=== PATIENT | male | born 1960 | race Caucasian/White ===

== ENCOUNTER 2021-07-03 07:39 | Inpatient (IN) ==
[2021-07-03] MEDS ORDERED: Nitroglycerin 0.4 MG TAB.SUBL SL ONE (07:44)
[2021-07-03] MEDS ORDERED: 0.9 % Sodium Chloride 1,000 ML ONE ×2 (07:50→07:54)
[2021-07-03] MEDS ORDERED: Heparin 1,000 UNITS/500 mL 500 ML ONE (07:50)
[2021-07-03] MEDS ORDERED: *HR* Heparin 10,000 UNIT/10 ML VIAL ONE ×2 (07:50→07:51)
[2021-07-03] MEDS ORDERED: ISOVUE-370 200 ML INFUS..BTL ONE ×2 (07:50→08:30)
[2021-07-03] MEDS ORDERED: Nitroglycerin 1,000 MCG/5 ML VIAL IV ONE (07:50)
[2021-07-03] MEDS ORDERED: *HR* Heparin 5,000 UNIT/ML VIAL IVP PRN ×2 (07:51)
[2021-07-03] MEDS ORDERED: *HR* Heparin 5,000 UNIT/ML VIAL IVP ONE (07:51)
[2021-07-03] MEDS ORDERED: *HR* Ticagrelor 90 MG TABLET PO ONE (07:51)
[2021-07-03] MEDS ORDERED: Nitroglycerin 0.4 MG TAB.SUBL SL PRN (07:51)
[2021-07-03] MEDS ORDERED: *HR* FentaNYL (PF) 100 MCG/2 ML VIAL ONE (07:53)
[2021-07-03] MEDS ORDERED: *HR* Midazolam HCl 2 MG/2 ML VIAL ONE (07:53)
[2021-07-03] MEDS ORDERED: Heparin 25,000UNIT/250ML 1/2NS 25,000 UNIT/250 ML IV.SOLN IVC SCH (08:00)
[2021-07-03 08:19] LABS: Basophils % 0.5 %; Eosinophils # 0.2 K/mcL (0.0-0.6); Eosinophils % 1.9 %; Hematocrit 45.1 % (37.5-50.1); Immature Granulocytes % 0.2 % (0-4); Lymphocytes # 2.5 K/mcL (0.6-4.6); Lymphocytes % 31.3 %; Mean Corpuscular HGB Conc 33.3 g/dL (31.6-35.5); Mean Corpuscular Hemoglobin 30.2 pg (28.0-33.3); Mean Corpuscular Volume 90.7 fL (83.0-100.0); Mean Platelet Volume 9.8 fL (9.4-12.4); Monocytes # 0.4 K/mcL (0.0-1.3); Monocytes % 4.9 %; Neutrophils # 4.9 K/mcL (1.6-8.9); Platelet Count 312 K/mcL (140-400); Red Blood Count 4.97 M/mcL (4.19-5.50); Red Cell Distribution Width 12.9 % (11.5-14.5); Segmented Neutrophils % 61.2 %
[2021-07-03] MEDS ORDERED: Tirofiban 12.5 MG/250ML 12.5 MG/250 ML BAG ONE (08:25)
[2021-07-03 08:28] LABS: Prothrombin Time 10.9 Seconds (9.4-12.1)
[2021-07-03 08:30] LABS: Activated Partial Thrombo Time 29.8 Seconds (26.0-36.0)
[2021-07-03] MEDS ORDERED: Perflutren Lipid Microsphere 1.3 ML in 0.9 % Sodium Chloride 8.7 ML IVP PRN (09:05)
[2021-07-03] MEDS ORDERED: Naloxone 0.4 MG/ML INJ IVP PRN (09:05)
[2021-07-03] MEDS ORDERED: Acetaminophen 325 MG TABLET PO PRN (09:08)
[2021-07-03 10:13] LABS: BUN/Creatinine Ratio 20 (6-26); Blood Urea Nitrogen 20 mg/dL (8-23); Calcium 9.1 mg/dL (8.6-10.3); Carbon Dioxide 24 mEq/L (23-29); Chloride 104 mEq/L (98-107); Glucose 179 mg/dL (70-105); Magnesium 1.8 mg/dL (1.6-2.6); Osmolality,Calculated 295 (280-300); Sodium 139 mEq/L (136-145); Troponin I 0.03 ng/mL (< 0.04); eGFR For African Americans > 60 (> 60); eGFR For Non-African Americans > 60 (> 60)
[2021-07-03 13:50] LABS: Estimated Average Glucose 134 mg/dl; Hemoglobin A1C 6.3 %
[2021-07-03] MEDS: Metoprolol XL (24 HR) Succ 50 MG TAB.ER.24H PO SCH (18:59)
[2021-07-03] MEDS: Sacubitril/Valsartan 24/26 MG 1 TABLET PO SCH (20:38)
[2021-07-03] MEDS: *HR* Ticagrelor 90 MG TABLET PO SCH (20:39)
[2021-07-04 06:48] LABS: BUN/Creatinine Ratio 15 (6-26); Blood Urea Nitrogen 14 mg/dL (8-23); Calcium 9.1 mg/dL (8.6-10.3); Carbon Dioxide 26 mEq/L (23-29); Chloride 102 mEq/L (98-107); Chol/HDL Ratio 5.7 (0-4.9); Cholesterol 211 mg/dL (< 200); Glucose 136 mg/dL (70-105); HDL Cholesterol 37 mg/dL (40-59); LDL Cholesterol,Calculated 136 mg/dL (< 100); Osmolality,Calculated 287 (280-300); Sodium 137 mEq/L (136-145); Triglycerides 191 mg/dL (< 150); eGFR For African Americans > 60 (> 60); eGFR For Non-African Americans > 60 (> 60)
[2021-07-04 07:14] LABS: Basophils % 0.3 %; Eosinophils # 0.1 K/mcL (0.0-0.6); Eosinophils % 0.6 %; Hematocrit 43.1 % (37.5-50.1); Hemoglobin 14.5 g/dL (12.9-16.9); Immature Granulocytes % 0.2 % (0-4); Lymphocytes # 2.1 K/mcL (0.6-4.6); Lymphocytes % 22.1 %; Mean Corpuscular HGB Conc 33.6 g/dL (31.6-35.5); Mean Corpuscular Hemoglobin 30.9 pg (28.0-33.3); Mean Corpuscular Volume 91.9 fL (83.0-100.0); Monocytes # 0.6 K/mcL (0.0-1.3); Monocytes % 6.3 %; Neutrophils # 6.8 K/mcL (1.6-8.9); Platelet Count 322 K/mcL (140-400); Red Blood Count 4.69 M/mcL (4.19-5.50); Segmented Neutrophils % 70.5 %; White Blood Count 9.6 K/mcL (4.3-11.1)
[2021-07-04] MEDS: Metoprolol XL (24 HR) Succ 50 MG TAB.ER.24H PO SCH (08:29)
[2021-07-04] MEDS: Aspirin 81 MG TAB.CHEW PO SCH (08:29)
[2021-07-04] MEDS: Spironolactone 25 MG TABLET PO SCH (08:29)
[2021-07-04] MEDS: Sacubitril/Valsartan 24/26 MG 1 TABLET PO SCH ×2 (08:29→20:15)
[2021-07-04] MEDS: *HR* Ticagrelor 90 MG TABLET PO SCH ×2 (08:29→20:16)
[2021-07-04] MEDS: Pregabalin 75 MG CAPSULE PO SCH ×2 (12:02→20:15)
[2021-07-04] MEDS: Pregabalin 50 MG CAPSULE PO SCH ×2 (12:02→20:15)
[2021-07-04] MEDS ORDERED: *HR* HYDROcodone/Acet 10/325 mg TABLET PO PRN (13:09)
[2021-07-04] MEDS ORDERED: PREGABALIN 200 MG PO SCH (21:00)
[2021-07-05 00:03] VITALS: PULSE 74
[2021-07-05 04:44] VITALS: O2SAT 98
[2021-07-05] MEDS: Sacubitril/Valsartan 24/26 MG 1 TABLET PO SCH (08:54)
[2021-07-05] MEDS: *HR* Ticagrelor 90 MG TABLET PO SCH (08:55)
[2021-07-05] MEDS: Pregabalin 50 MG CAPSULE PO SCH (08:55)
[2021-07-05] MEDS: Metoprolol XL (24 HR) Succ 50 MG TAB.ER.24H PO SCH (08:55)
[2021-07-05] MEDS: Aspirin 81 MG TAB.CHEW PO SCH (08:55)
[2021-07-05] MEDS: Spironolactone 25 MG TABLET PO SCH (08:55)
[2021-07-05] MEDS: Pregabalin 75 MG CAPSULE PO SCH (08:55)
[2021-07-05 11:25] VITALS: BP 93/62; TEMP 98.3
== END 2021-07-05 14:55 | disposition home or self-care (01) | DRG 282 ==
LOC: EMEROOARM 07:39 → 2NENU 16:12
PROVIDERS: ADMIT Internal Medicine; ATTEND Internal Medicine